=== PATIENT | female | born 1965 | race Caucasian/White ===

== ENCOUNTER → 2017-06-16 | Outpatient (CLI) | payer MEDICARE, OTHER ==
[~2017-06-16] MED LIST: ACETAMINOPHEN PO; AMBIEN CR PO; BACLOFEN10 MG PO; BACTRIM DS TABL1 TA2 PO; HYDROCODON-ACE1 EA11; K-DUR10 MEQ; KEPPRA500 M2 PO; LEVAQUIN PO; LEXAPRO20 MG; LYRICA100 MG; OXYCONTIN PO; VICODIN 5/500 T1 TAB PO; ZOFRAN PO; [UNRECOGNIZED DRUG - OTHER]
--- NOTE | ~2017-06-16 | MR17 ---
[facility] A Service of [facility] RADIOLOGY TEXT RESULTS PATIENT: ABHIJIT BURKS LOCATION: [facility] : 69 UNIT #: [id number] AGE: [address]: Ivan Flores Jr, MD SEX: F ORDER DR: [id number] [facility] [address] [place], [place] [address] [id number] O MR#: [id number] Acc #: [id number] NAME: ABHIJIT BURKS : 1965 SEX: F STUDY DATE/TIME: 06/16/2017 15:08 UNIT: [facility] ROOM: STUDY DESCRIPTION: MR Brain WWo Contrast Attending Physician: Ivan Flores M.D. Referring Physician: Ivan Flores M.D. Ordering Physician: Ivan Flores M.D. Primary Care Physician: Primary Care Physician No MRI CENTER REPORT This report is preliminary unless electronic signature is present. EXAM Brain MRI with without contrast HISTORY Multiple sclerosis. Leg and arm weakness for the past 6 months. TECHNIQUE Multiplanar imaging brain was performed with and without contrast. 12 mL of MultiHance was used. COMPARISON The study is compared to a previous examination from 01/01/2014. FINDINGS Overall, there is generalized improvement since the previous examination. The size of edematous plaques seen on the previous scan has diminished significantly. There are however, several new plaques identified since the previous scan. There are 2 new plaques in the left frontal lobe and 2 new plaques in the right frontal lobe. No enhancing plaques are seen on the postcontrast images. No mass lesions are seen. None of the plaques enhance with contrast. Extraaxial structures are unremarkable. IMPRESSION Overall there has been significant improvement since the previous examination. There are fewer plaques overall and many of the plaques are much smaller than on the previous scan. There are 2 new plaques in the right frontal lobe and 2 new plaques in the left frontal lobe when compared to the previous examination but these plaques are small and do not enhance with contrast. Dictated by... Ivan Neville M.D. [facility] A Service of [facility] RADIOLOGY TEXT RESULTS PATIENT: ABHIJIT BURKS LOCATION: [facility] : 69 UNIT #: [id number] AGE: [address]: Ivan Flores Jr, MD SEX: F ORDER DR: THIS IS AN ELECTRONICALLY VERIFIED REPORT Ivan Neville M.D. at 06/19/2017 4:01 PM RLF/to TD: 06/17/2017 16:25 JOB #: [id number] MRI CENTER REPORT Page 1 of 1 COPY
--- NOTE | ~2017-06-16 | MR31 ---
[facility] A Service [facility] RADIOLOGY TEXT RESULTS PATIENT: ABHIJIT BURKS [facility] UNIT #: [id number] AGE: [address]: Ivan Flores Jr, MD SEX: F ORDER DR: [id number] [facility] [address] [place], [place] [address] [id number] O MR#: [id number] Acc #: [id number] NAME: ABHIJIT BURKS : 1965 SEX: F STUDY DATE/TIME: 06/16/2017 15:30 UNIT: [facility] ROOM: STUDY DESCRIPTION: MR Cervical WWo Contrast Attending Physician: Ivan Flores M.D. Referring Physician: Ivan Flores M.D. Ordering Physician: Ivan Flores M.D. Primary Care Physician: Primary Care Physician No MRI CENTER REPORT This report is preliminary unless electronic signature is present. EXAM Cervical MRI with and without contrast HISTORY Multiple sclerosis. Leg and arm numbness worsening over the past 6 months. TECHNIQUE Multiplanar imaging cervical spine was performed with and without contrast. 12 mL of MultiHance was used. COMPARISON 01/11/2015 FINDINGS Generally mild degenerative changes are seen. The cervical discs with moderate degenerative disc disease at C5-6. There is a slight retrolisthesis across C5-6 secondary to the degenerative changes. This is stable since the previous examination. On the previous scan, there was subtle increased T2 signal in the mid cervical cord more prominent to the right of midline and centered at C4-5. On the current examination, this is not appreciated. No enhancing lesions are seen on the postcontrast images. IMPRESSION Subtle mid cervical cord signal abnormality seen on the previous MRI is not seen on the current study. Cervical cord signal is within normal limits. Degenerative disc disease worst at C5-6 is stable when compared to the previous scan. Dictated by... Ivan Neville M.D. THIS IS AN ELECTRONICALLY VERIFIED REPORT [facility] A Service [facility] RADIOLOGY TEXT RESULTS PATIENT: ABHIJIT BURKS LOCATION: [facility] : 69 UNIT #: [id number] AGE: [address]: Ivan Flores Jr, MD SEX: F ORDER DR: Ivan Neville M.D. at 06/19/2017 4:01 PM RLF/priyank TD: 06/17/2017 16:27 JOB #: [id number] MRI CENTER REPORT Page 1 of 1 COPY
== END | disposition home or self-care (01) ==
LOC: CMRI 14:34
DX: G35 Multiple sclerosis (principal); G93.89 Other specified disorders of brain; M50.322 Other cervical disc degeneration at C5-C6 level
CPT/HCPCS: 70553; 72156; A9577